=== PATIENT | male | born 1955 | race Caucasian/White ===

== ENCOUNTER 2016-12-12 06:23 | Day surgery (SDC) | payer OTHER ==
[~2016-12-12 06:23] MED LIST: Acetaminophen TAB* 325 MG PO PRN; Buffered Lidocaine 0.9% SYRIN* 5 ML/SYR SYRINGE INTRADERM ONE
[2016-12-12] MEDS ORDERED: Midazolam* 1 MG/ML 2 ML VIAL (2 MG) ONE (07:31)
[2016-12-12] MEDS ORDERED: fentaNYL* 50 MCG/ML 2 ML VIAL (100 MCG VIAL) ONE (07:31)
[2016-12-12 08:51] VITALS: BP 132/77
[2016-12-12] MEDS ORDERED: acetaZOLAMIDE TAB* 250 MG ONE (16:10)
[2016-12-12] MEDS ORDERED: Neomycin/Polymy/Dex OPHTH.OIN* 3.5 GM ONE (16:10)
[2016-12-12] MEDS ORDERED: Povidone Iodine 5% OPTH* 30 ML BTL ONE (16:10)
[2016-12-12] MEDS ORDERED: Phenylephrine 2.5% OPTH.SOL* 2 ML BTL ONE (16:10)
[2016-12-12] MEDS ORDERED: Tetracaine 0.5% OPTH.SOL 4 ML* 1 DROP BTL ONE (16:10)
[2016-12-12] MEDS ORDERED: Lidocaine 1% MPF* 2 ML VIAL ONE (16:10)
[2016-12-12] MEDS ORDERED: Tropicamide 1% OPTH.SOL* BTL ONE (16:10)
[2016-12-12] MEDS ORDERED: Buffered Lidocaine 0.9% SYRIN* 5 ML/SYR SYRINGE ONE (16:10)
[2016-12-12] MEDS ORDERED: Ketorolac 0.5% OPHTH (NF) 0.5 % 5 ML BTL ONE (16:11)
--- NOTE | 2016-12-12 23:26 | OP ---
DATE OF OPERATION: 12/12/16 - [facility] DATE OF : 59 SURGEON: Chirag Mckenna MD ANESTHESIOLOGIST: Anish Hicks MD ANESTHESIA: Monitored anesthesia care. PRE-OP DIAGNOSIS: Cataract of the right eye. POST-OP DIAGNOSIS: Cataract of the right eye. OPERATIVE PROCEDURE: Cataract surgery of the right eye. IMPLANTS: SN60WF 17.5 diopter lens to the right eye. COMPLICATIONS: None. DESCRIPTION OF PROCEDURE: The patient was given phenylephrine 2.5% and cyclopentolate 1% eye drops to the operative eye in the preoperative area. The patient was brought to the operating room where a time-out was taken to identify the correct patient, site and side of surgery, and correct lens selection. The patient's right eye was prepped and draped in the usual sterile fashion with 5% Betadine. A second time-out was taken to verify the correct patient, site and side of surgery, and correct lens selection. A lid speculum was placed to the right eye. A 1-mm paracentesis blade was used to make a clear corneal incision in the superotemporal position. Preservative-free 1% lidocaine was injected into the anterior chamber. DisCoVisc was then injected into the anterior chamber. A 2.75- mm keratome blade was used to make a triplanar incision at the inferotemporal position. A cystotome initiated a capsulorrhexis which was completed with Utrata forceps in a continuous and curvilinear manner. Hydrodissection of the lens was performed with BSS on a cannula. The lens could be spun in the capsular bag. The phacoemulsification handpiece was used with a [id number] technique to remove the nucleus in its entirety with 36.12 CDE. The I/A handpiece then removed the residual cortical lens material. DisCoVisc was injected to inflate the capsular bag. The planned SN60WF 17.5 diopter lens was injected into the capsular bag. The residual DisCoVisc was removed from the eye with the I/A handpiece. The corneal incisions were hydrated and no leaks occurred at physiologic pressure around 20 mmHg per palpation. The lid speculum was removed and drapes removed. Maxitrol ointment was placed to the surface of the operative eye. An adhesive patch and shield was placed on the operative eye. The patient was taken to the postoperative area in stable condition. [id number]/[facility] #: [id number] [facility]AC[place]
== END 2016-12-12 08:45 | disposition home or self-care (01) ==
LOC: OREAST 06:23
PROVIDERS: ATTEND Student in an Organized Health Care Education/Training Program
DX: H25.13 Age-related nuclear cataract, bilateral (principal); E11.3293 Type 2 diabetes mellitus with mild nonproliferative diabetic retinopathy without macular edema, bilateral; Z87.891 Personal history of nicotine dependence; Z79.84 Long term (current) use of oral hypoglycemic drugs; R05 Cough
CPT/HCPCS: A9270-GY; J2250; J3010; V2632